=== PATIENT | female | born 1990 | race African-American/Black ===

== ENCOUNTER 2017-07-08 09:47 | Emergency (ER) | payer OTHER ==
[~2017-07-08] VITALS: Ht 152.4 cm; Wt 56.1 kg
[~2017-07-08 09:47] MED LIST: Z.0.BCPILL PO
[2017-07-08 09:59] VITALS: BP 145/84; PULSE 89; RESP 16; TEMP 97.8; O2SAT 100
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
[2017-07-08] MEDS ORDERED: CYCL10TA PO (10:16)
[2017-07-08] MEDS ORDERED: NAPR500 PO (10:16)
== END 2017-07-08 10:42 | disposition home or self-care (01) ==
LOC: PHEFT 09:47
DX: M54.9 Dorsalgia, unspecified (principal); M54.6 Pain in thoracic spine; M54.5 Low back pain; V89.2XXA Person injured in unspecified motor-vehicle accident, traffic, initial encounter
CPT/HCPCS: 99283

== ENCOUNTER 2018-05-09 04:14 | Inpatient (IN) ==
[2018-05-09] MEDS ORDERED: Sod Chloride 0.9% Inj 1,000 ML IV.CONT PRN (05:06)
[2018-05-09] MEDS ORDERED: fentaNYL Citrate Inj 100 MCG/2 ML Ampul IV.PUSH PRN ×2 (05:06)
[2018-05-09] MEDS ORDERED: Naloxone Inj 0.4 MG/ML Vial IV.PUSH PRN ×2 (05:06→15:47)
[2018-05-09] MEDS ORDERED: Sodium Chlor 0.9% Inj 500 ML IV.SIG PRN (05:06)
[2018-05-09] MEDS ORDERED: Oxytocin 30 Units/500ml Premix 30 UNITS/500 ML BAG IV.SIG ONE (05:06)
--- NOTE | 2018-05-09 05:06 | P.HPOB ---
Patient Name: Ricardo Manrique Date of : 88 Patient Status: Inpatient Attending Provider: Harshil Peña Date: 05/09/18 04:48 Initialization Date: 05/09/18 04:48 History of Present Illness Primary Care Physician: Marycarmen Murphy MD History of Present Illness: 28-year-old 2 para 1 at 39-6/7 weeks gestation who comes complaining of leakage of fluid and contractions. She denies bleeding. She reports good movement today. She is actively robert every 2-3 minutes with confirmed rupture of membranes. Obstetrical history: Patient has had 1 prior term vaginal delivery. This care was provided by Dr. Gordon and her was uncomplicated. She is GBS negative. - Inpatient Certification I certify that the inpatient services were ordered in accordance with Medicare regulations governing the order. This includes certification that hospital inpatient services are reasonable and necessary and in the case of services not specified as inpatient-only under 42 CFR 419.22(n), that they are appropriately provided as inpatient services in accordance to with the 2-midnight benchmark under 43 CFR 412.3(e) Review of Systems All other systems reviewed negative except as stated in HPI PMFSH - Medical / Surgical Hx Neg / Unobtainable Medical Problems Denied: Yes - Surgical History Surgical History: Surgical History (Last Updated 05/09/18 @ 05:00 by James Burgos MD) H/O foot surgery Hx of breast reduction, elective - Social History I have reviewed the patient's Social History: Yes - Tobacco History Second Hand Smoke Exposure: No Tobacco Use In Past 30 Days: No - Substance Use History Substance History: No History of Abuse - Travel History History of Recent Travel: No Medications and Allergies Allergies Allergy/AdvReac Type Severity Reaction Status Date / Time codeine Allergy Intermediate HIVES Verified 07/08/17 09:58 Sulfa (Sulfonamide Allergy Intermediate HIVES Verified 07/08/17 09:58 Antibiotics) Exam Vital signs: Vital Signs 05/09/18 04:35 05/09/18 04:37 Temperature 97.9 F Pulse Rate 96 H Respiratory Rate 18 Blood Pressure 116/62 Narrative: GENERAL: Well-nourished, well-developed patient. SKIN: Warm and dry. HEAD: Normocephalic and atraumatic. EYES: No scleral icterus. No injection or drainage. ENT: No nasal drainage noted. Mucous membranes pink. Airway patent. NECK: Supple, trachea midline. No JVD. CARDIOVASCULAR: Regular rate and rhythm without murmurs, gallops, or rubs. RESPIRATORY: Breath sounds equal bilaterally. No accessory muscle use. ABDOMEN/GI: Abdomen soft, non-tender, bowel sounds present, no rebound, no guarding Gravid to [-] weeks size Fundal Height: [-] GENITOURINARY: External Genitalia: intact and normal in appearance BUS glands: [Negative-] Cervix: [1-] Dilatation: [1-] Effacement: [-30] Station: [--3] Presentation: [-vtx] Membranes: [ ruptured] Uterine Contractions: [q2-3-] FHT's: Category: [1-] Baseline: [-] Reactive: [y-] Variability: [-] Decels: [-] EXTREMITIES: No cyanosis or edema. BACK: Nontender without obvious deformity. No CVA tenderness. NEUROLOGICAL: Awake and alert. Motor and sensory grossly within normal limits. Five out of 5 muscle strength in all muscle groups. Normal speech. Assessment and Plan - Plan Assessment: Term intrauterine with ruptured membranes and active contractions Plan: Admit for labor management. Discharge Plan - Discharge Disposition Patient Disposition: 30 Still Patient - Physicians Team ED Provider: James Burgos Primary Care Provider: Marycarmen Murphy
[2018-05-09] MEDS ORDERED: Citric Acid/Sodium Citrate Liq 30 ML UDC PO SCH (05:15)
[2018-05-09] MEDS ORDERED: fentaNYL 2MCG-Bupiv 0.125% Epi 150 ML EPIDURAL ONE (05:21)
[2018-05-09 05:33] LABS: Baso # (Auto) 0.1 th/mm3 (0.0-0.2); Baso % (Auto) 0.6 % (0.0-2.0); Eos # (Auto) 0.1 th/mm3 (0.0-0.4); Eos % (Auto) 0.7 % (0.0-4.0); Hematocrit 36.5 % (35.0-46.0); Hemoglobin 12.4 gm/dL (11.6-15.3); Lymph # (Auto) 1.9 th/mm3 (1.0-4.8); Lymph % (Auto) 19.2 % (9.0-44.0); Mean Corpuscular HGB Conc 33.9 % (32.0-36.0); Mean Corpuscular Hemoglobin 28.1 pg (27.0-34.0); Mean Corpuscular Volume 82.7 fL (80.0-100.0); Mean Platelet Volume 7.2 fL (7.0-11.0); Mono # (Auto) 0.7 th/mm3 (0.0-0.9); Mono % (Auto) 6.9 % (0.0-8.0); Neut % (Auto) 72.6 % (16.0-70.0); Platelet Count 284 th/mm3 (150-450); Red Blood Count 4.41 mil/mm3 (4.00-5.30); White Blood Count 9.7 th/mm3 (4.0-11.0)
[2018-05-09] MEDS ORDERED: Bupivacaine PF 0.25% Inj 10 ML Vial ONE (05:40)
[2018-05-09] MEDS ORDERED: Lidocaine PF 1% Inj 5 ML Vial ONE (05:40)
[2018-05-09 05:41] LABS: Amphetamine Screen,Urine Neg (Neg); Barbiturate Screen,Urine Neg (Neg); Cannabinoid Screen,Urine Neg (Neg); Cocaine Screen,Urine Neg (Neg)
[2018-05-09 05:43] LABS: Opiate Screen,Urine Neg (Neg)
[2018-05-09] MEDS ORDERED: fentaNYL 2MCG-Bupiv 0.125% Epi 150 ML EPIDURAL PRN (06:13)
[2018-05-09] MEDS ORDERED: fentaNYL Citrate Inj 100 MCG/2 ML Ampul EPIDURAL ONE (06:13)
--- NOTE | 2018-05-09 09:10 | P.OBLABOR ---
Subjective Interval history: doing well, comfortable with epidural Objective Vital Signs: Vital Signs - 8 hr 05/09/18 04:35 05/09/18 04:37 05/09/18 05:42 Temperature 97.9 F Pulse Rate 96 H 95 H Respiratory Rate 18 Blood Pressure 116/62 130/71 05/09/18 05:45 05/09/18 05:50 05/09/18 05:55 Temperature Pulse Rate 105 H 99 H 97 H Respiratory Rate Blood Pressure 126/74 137/73 128/69 05/09/18 06:00 05/09/18 06:05 05/09/18 06:10 Temperature Pulse Rate 92 H 77 80 Respiratory Rate Blood Pressure 118/57 L 115/53 L 109/54 L 05/09/18 06:15 05/09/18 06:20 05/09/18 06:25 Temperature Pulse Rate 75 76 85 Respiratory Rate Blood Pressure 107/55 L 05/09/18 06:35 05/09/18 06:40 05/09/18 06:55 Temperature Pulse Rate 72 81 73 Respiratory Rate Blood Pressure 113/45 L 101/50 L 05/09/18 06:57 05/09/18 07:25 05/09/18 07:48 Temperature 97.5 F L Pulse Rate 76 71 Respiratory Rate 18 20 Blood Pressure 105/57 L 113/60 05/09/18 08:42 Temperature Pulse Rate 75 Respiratory Rate 20 Blood Pressure 91/57 L Objective: Pelvic Exam: Cervix: [-] Dilatation: 4 Effacement: 90 Station: [-] Presentation: vtx Membranes: SROM Uterine Contractions: [-] FHT's: Category: 1 Baseline: [-] Reactive: [-] Variability: [-] Decels: [-] Patient Started Active Labor: No Medical Induction of Labor: No Artificial Rupture of Membrane: No
[2018-05-09] MEDS ORDERED: Oxytocin 30 Units/500ml Premix 30 UNITS/500 ML BAG IV.SIG PRN (09:11)
[2018-05-09 14:33] LABS: Bacteria,Urine Rare /hpf; Bilirubin,Urine Negative (Negative); Clarity,Urine Clear (Clear); Color,Urine Yellow (Yellw/Straw); Glucose,Urine (UA) Negative (Negative); Leukocyte Esterase,Urine Negative (Negative); Nitrite,Urine Negative (Negative); Specific Gravity,Urine 1.013 (1.002-1.035); Squamous Epithelial Cell,Urine <1 /hpf (0-5)
[2018-05-09] MEDS ORDERED: Acetaminophen 325 MG Tablet PO PRN (15:47)
[2018-05-09] MEDS ORDERED: Bisacodyl 10 MG Supp RECTAL PRN (15:47)
[2018-05-09] MEDS ORDERED: Witch Hazel 50%/Glyderin 12.5% 40 Pad Jar RECTAL PRN (15:47)
[2018-05-09] MEDS ORDERED: Benzocaine 20% Top Spray 60 ML Can TOPICAL PRN (15:47)
[2018-05-09] MEDS ORDERED: Oxytocin 30 Units/500ml Premix 30 UNITS/500 ML BAG IV.CONT PRN (15:47)
[2018-05-09] MEDS ORDERED: Zolpidem Tartrate 5 MG Tablet PO PRN (15:47)
--- NOTE | 2018-05-09 15:51 | P.OBDELI ---
Weeks Gestation: 39 Patient Started Active Labor: Yes Active Labor Start Date: 05/09/18 Active Labor Start Time: 05:00 Medical Induction of Labor: No Artificial Rupture of Membrane: No Anesthesia: Epidural Episiotomy: none Vaginal Delivery: Normal, Spontaneous Presentation: Occiput anterior Nuchal Cord: None Delayed Cord Clamping (45 sec): Yes Placenta: Spontaneous delivery, Intact, 3 vessel cord Laceration: 1 deg Repair: Chromic interrupted Infant: Female, Single
[2018-05-09] MEDS ORDERED: Measles/Mumps/Rubella Vaccine Inj 0.5 ML Vial SQ ONE (16:00)
[2018-05-09] MEDS ORDERED: Diphtheria/Tetanus/Pertussis Vaccine Inj 0.5 ML Syringe IM ONE (16:00)
[2018-05-10] MEDS: Senna/Docusate Sodium 8.6/50 MG Tablet PO SCH ×3 (00:37→21:26)
--- NOTE | 2018-05-10 13:04 | P.PNOB ---
Subjective Post day: 1 Interval history: doing well Objective Vital Signs/I&O: Vital Signs 05/09/18 13:05 05/09/18 13:40 05/09/18 14:15 Temperature Pulse Rate 77 77 77 Respiratory Rate Blood Pressure 114/62 118/61 05/09/18 14:20 05/09/18 14:25 05/09/18 14:30 Temperature 99.2 F 98.9 F Pulse Rate 75 79 77 Respiratory Rate 18 Blood Pressure 108/69 05/09/18 14:40 05/09/18 15:20 05/09/18 15:31 Temperature Pulse Rate 85 88 99 H Respiratory Rate Blood Pressure 126/63 118/70 93/63 L 05/09/18 16:11 05/09/18 16:16 05/09/18 16:30 Temperature Pulse Rate 83 86 90 Respiratory Rate Blood Pressure 128/59 L 115/63 109/64 05/09/18 17:00 05/09/18 17:15 05/09/18 17:30 Temperature 98.0 F Pulse Rate 87 77 88 Respiratory Rate Blood Pressure 114/58 L 115/58 L 111/64 05/09/18 17:50 05/09/18 20:00 05/10/18 08:00 Temperature 99.7 F H 98.1 F 97.5 F L Pulse Rate 81 75 66 Respiratory Rate 16 18 20 Blood Pressure 111/66 117/67 112/67 Intake & Output 05/09/18 05/10/18 05/10/18 18:59 06:59 18:59 Intake Total 1500 / 1500 Balance 1500 / 1500 Intake: IV 1500 / 1500 LR 1000 mL Inj 1,000 ML @ 125 1000 / 1000 mls/hr IV.CONT .Q8H [facility] Rx#: [id number] Pitocin 30 Units/NS 500 ml 500 / 500 Premix 30 units In 500 ml @ 2 MILLIUNIT/MIN 2 mls/hr IV.SIG TITRATE PRN Rx#:[id number] Result Diagrams: 05/09/18 05:18 Objective Remarks: GENERAL: Well-nourished, well-developed patient. ABDOMEN/GI: Abdomen soft, non-tender. Fundus: Firm, non-tender at umbilicus. GENITOURINARY: Light to moderate bleeding. EXTREMITIES: No cyanosis or edema, non-tender, without signs of DVT. Medications and IVs: Active Medications Acetaminophen (Tylenol) 650 mg PO Q4H PRN PRN Reason: PAIN SCALE 1 TO 2 Al Hydroxide/Mg Hydroxide (Milk Of Magnesia Liq) 30 ml PO Q12H PRN PRN Reason: Mild Constipation Benzocaine (Americaine 20% Top Excello) 1 spray TOPICAL Q4H PRN PRN Reason: For Perineum Discomfort Bisacodyl (Dulcolax Supp) 10 mg RECTAL DAILY PRN PRN Reason: SEVERE CONSITIPATION Fentanyl/Bupivacaine/Sodium Chlor (Fentanyl 2 Mcg-Bupiv 0.125% Epi) 150 mls @ 12 mls/hr EPIDURAL PRN PRN PRN Reason: for Labor Pain Last Infusion: 05/09/18 16:30 Dose: 12 mls/hr Oxytocin (Pitocin 30 Units/Ns 500 Ml Premix) 30 units in 500 mls @ 2 mls/hr IV.SIG TITRATE PRN; Protocol PRN Reason: For induction of labor Last Titration: 05/09/18 16:32 Dose: Infused Oxytocin (Pitocin 30 Units/Ns 500 Ml Premix) 30 units in 500 mls @ 100 mls/hr IV.CONT UNSCH PRN PRN Reason: Heavy bleeding Ibuprofen (Motrin) 800 mg PO Q8H PRN PRN Reason: For Cramping Last Admin: 05/10/18 08:29 Dose: 800 mg Lactulose (Lactulose Liq) 30 ml PO DAILY PRN PRN Reason: SEVERE CONSITIPATION Naloxone HCl (Narcan Inj) 0.1 mg IV.PUSH Q2M PRN PRN Reason: for opiate reversal Ondansetron HCl (Zofran Odt) 4 mg PO Q6H PRN PRN Reason: NAUSEA OR VOMITING Oxycodone/Acetaminophen (Percocet 5/325 Mg) 1 tab PO Q4H PRN PRN Reason: PAIN SCALE 3 TO 5 Oxycodone/Acetaminophen (Percocet 5/325 Mg) 2 tab PO Q4H PRN PRN Reason: PAIN SCALE 6 TO 10 Senna/Docusate Sodium (Rosio-Colace) 1 tab PO BID RAYNE Last Admin: 05/10/18 09:00 Dose: Not Given Sennosides (Senokot) 17.2 mg PO Q12H PRN PRN Reason: Moderate Constipation Sodium Chloride (Ns Flush) 2 ml IV.FLUSH BID RAYNE Last Admin: 05/10/18 00:33 Dose: 2 ml Sodium Chloride (Ns Flush) 2 ml IV.FLUSH PRN PRN PRN Reason: FLUSH AFTER USING IV ACCESS Witch Taryn/Glycerin (Tucks Pads) 1 applicatio RECTAL QID PRN PRN Reason: HEMORRHOIDS Zolpidem Tartrate (Ambien) 5 mg PO HS PRN PRN Reason: SLEEP Assessment and Plan - Diagnosis (1) (spontaneous vaginal delivery) Code(s): O80 - Encounter for full-term uncomplicated delivery Status: Acute
--- NOTE | 2018-05-11 08:06 | P.PNOB ---
Subjective Post day: 2 Interval history: doing well DC home today Objective Vital Signs/I&O: Vital Signs 05/10/18 20:09 Temperature 98.3 F Pulse Rate 73 Respiratory Rate 18 Blood Pressure 116/66 Result Diagrams: 05/09/18 05:18 Objective Remarks: GENERAL: Well-nourished, well-developed patient. ABDOMEN/GI: Abdomen soft, non-tender. Fundus: Firm, non-tender at umbilicus. GENITOURINARY: Light to moderate bleeding. EXTREMITIES: No cyanosis or edema, non-tender, without signs of DVT. Medications and IVs: Active Medications Acetaminophen (Tylenol) 650 mg PO Q4H PRN PRN Reason: PAIN SCALE 1 TO 2 Al Hydroxide/Mg Hydroxide (Milk Of Magnesia Liq) 30 ml PO Q12H PRN PRN Reason: Mild Constipation Benzocaine (Americaine 20% Top [place]) 1 spray TOPICAL Q4H PRN PRN Reason: For Perineum Discomfort Bisacodyl (Dulcolax Supp) 10 mg RECTAL DAILY PRN PRN Reason: SEVERE CONSITIPATION Fentanyl/Bupivacaine/Sodium Chlor (Fentanyl 2 Mcg-Bupiv 0.125% Epi) 150 mls @ 12 mls/hr EPIDURAL PRN PRN PRN Reason: for Labor Pain Last Infusion: 05/09/18 16:30 Dose: 12 mls/hr Oxytocin (Pitocin 30 Units/Ns 500 Ml Premix) 30 units in 500 mls @ 2 mls/hr IV.SIG TITRATE PRN; Protocol PRN Reason: For induction of labor Last Titration: 05/09/18 16:32 Dose: Infused Oxytocin (Pitocin 30 Units/Ns 500 Ml Premix) 30 units in 500 mls @ 100 mls/hr IV.CONT UNSCH PRN PRN Reason: Heavy bleeding Ibuprofen (Motrin) 800 mg PO Q8H PRN PRN Reason: For Cramping Last Admin: 05/10/18 21:27 Dose: 800 mg Lactulose (Lactulose Liq) 30 ml PO DAILY PRN PRN Reason: SEVERE CONSITIPATION Naloxone HCl (Narcan Inj) 0.1 mg IV.PUSH Q2M PRN PRN Reason: for opiate reversal Ondansetron HCl (Zofran Odt) 4 mg PO Q6H PRN PRN Reason: NAUSEA OR VOMITING Oxycodone/Acetaminophen (Percocet 5/325 Mg) 1 tab PO Q4H PRN PRN Reason: PAIN SCALE 3 TO 5 Oxycodone/Acetaminophen (Percocet 5/325 Mg) 2 tab PO Q4H PRN PRN Reason: PAIN SCALE 6 TO 10 Senna/Docusate Sodium (Rosio-Colace) 1 tab PO BID [facility] Last Admin: 05/10/18 21:26 Dose: Not Given Sennosides (Senokot) 17.2 mg PO Q12H PRN PRN Reason: Moderate Constipation Sodium Chloride (Ns Flush) 2 ml IV.FLUSH BID [facility] Last Admin: 05/10/18 21:05 Dose: Not Given Sodium Chloride (Ns Flush) 2 ml IV.FLUSH PRN PRN PRN Reason: FLUSH AFTER USING IV ACCESS Witch Taryn/Glycerin (Tucks Pads) 1 applicatio RECTAL QID PRN PRN Reason: HEMORRHOIDS Zolpidem Tartrate (Ambien) 5 mg PO HS PRN PRN Reason: SLEEP Assessment and Plan - Diagnosis (1) (spontaneous vaginal delivery) Code(s): O80 - Encounter for full-term uncomplicated delivery Status: Acute
--- NOTE | 2018-05-11 08:10 | P.DS ---
Date of admission: 05/09/18 04:41 Primary care physician: Marycarmen Murphy MD Brief History from admission: labor at 39 weeks spontaneous DS: Diagnosis - Discharge Diagnosis (1) (spontaneous vaginal delivery) Status: Acute DS: Summary Hospital Course: Patient came in labor. She had without difficulty. 2 days PP and DC home with - Time Spent with Patient Total time spent providing and/or coordinating discharge services: Less than 30 minutes Exam Vital signs: Vital Signs 05/10/18 20:09 Temperature 98.3 F Pulse Rate 73 Respiratory Rate 18 Blood Pressure 116/66 - Constitutional no acute distress - Routine Respiratory Exam Present: CTA bilaterally - Routine Cardiovascular Exam Present: RRR - Routine Abdominal Exam Present: soft, normoactive bowel sounds Results Procedures completed during hospitalization: Discharge Plan - Discharge Disposition Patient Disposition: 01 Discharge Home - Discharge Condition Condition: Good - Discharge Order Discharge Orders: Discharge Order (Routine); Ordered 05/11/18 Ordered By: Harshil Peña - Physicians Team Primary Care Provider: Marycarmen Murphy Attending Provider: Harshil Peña
[2018-05-11 08:44] VITALS: BP 106/71; PULSE 68; RESP 16; TEMP 97.9
[2018-05-11] MEDS: Senna/Docusate Sodium 8.6/50 MG Tablet PO SCH (08:46)
== END 2018-05-11 13:08 | disposition home or self-care (01) ==
LOC: HOBED 04:14 → H2E 04:41 → H1EA 18:49
PROVIDERS: ADMIT Obstetrics & Gynecology; ATTEND Obstetrics & Gynecology